=== PATIENT | female | born 1990 | race Caucasian/White ===

== ENCOUNTER 2017-02-27 21:17 | Inpatient (IN) | payer MEDICAID ==
[~2017-02-27] VITALS: Ht 175.3 cm; Wt 102.1 kg
[2017-02-27 21:54] LABS: BASOPHILS % (AUTO) 0.2 % (0.0-2.0); EOSINOPHILS % (AUTO) 0.3 % (1.0-6.0); HEMATOCRIT 43.1 % (36-46); HEMOGLOBIN 14.5 g/dL (12.0-16.0); LYMPHOCYTES # (AUTO) 2.2 K/uL (1.0-4.8); LYMPHOCYTES % (AUTO) 14.3 % (22.0-44.0); MEAN CORPUSCULAR HEMOGLOBIN 28.1 pg (26.0-34.0); MEAN CORPUSCULAR HGB CONC 33.6 G/dL (31.0-37.0); MEAN CORPUSCULAR VOLUME 84 fL (80-100); MONOCYTES # (AUTO) 0.6 K/uL (0.1-1.0); MONOCYTES % (AUTO) 4.2 % (2.0-9.0); NEUTROPHILS # (AUTO) 12.4 K/uL (1.8-7.7); PLATELET COUNT (AUTO) 283 K/uL (150-450); RED BLOOD CELL COUNT(AUTO) 5.16 MIL/uL (4.00-5.20); RED CELL DISTRIBUTION WIDTH 13.9 % (11.5-14.5); WHITE BLOOD COUNT (AUTO) 15.4 K/uL (4.5-11.0)
[2017-02-27 22:00] LABS: ANION GAP 18 mmol/L (8-16); CALCIUM, TOTAL 9.6 mg/dL (8.8-10.5); CARBON DIOXIDE 22 mmol/L (22-29); CHLORIDE 100 mmol/L (98-107); GLOMERULAR FILTR. RATE CALC > 60 mL/min (>60); POTASSIUM 4.7 mmol/L (3.5-5.1); SODIUM SERUM 140 mmol/L (136-145); UREA NITROGEN, BLOOD 12 mg/dL (7-18)
[2017-02-27 22:05] LABS: ALANINE AMINOTRANSFERASE 19 U/L (12-78); ALBUMIN 4.5 g/dL (3.4-5.0); ASPARTATE AMINOTRANSFERASE 16 U/L (15-37); BILIRUBIN,TOTAL 1.2 mg/dL (0.1-1.0); TOTAL PROTEIN, SERUM 8.6 g/dL (6.4-8.2)
[2017-02-27] MEDS ORDERED: LORazepam 2 MG TABLET PO PRN (22:45)
[2017-02-27] MEDS ORDERED: ZOLPIDEM TARTRATE 10 MG TABLET PO PRN (22:45)
[2017-02-27] MEDS ORDERED: DiphenhydrAMINE HCL 50 MG/ML VIAL IM ONE (23:00)
[2017-02-27] MEDS ORDERED: LORazepam 2 MG/ML VIAL IM ONE (23:00)
[2017-02-27] MEDS ORDERED: HALOPERIDOL LACTATE 5 MG/ML VIAL IM ONE (23:00)
[2017-02-27 23:05] LABS: ADD UA MICROSCOPIC YES; APPEARANCE,URINE CLOUDY (CLEAR); GLUCOSE, URINE (UA) NEGATIVE (NEGATIVE); KETONES,URINE >=80 mg/dL (NEGATIVE); LEUKOCYTE ESTERASE ,URINE NEGATIVE (NEGATIVE); OCCULT BLOOD,URINE NEGATIVE (NEGATIVE); PH,URINE 5.5 (5.0-8.0); PROTEIN,URINE NEGATIVE (NEGATIVE)
[2017-02-28 00:53] LABS: CHOL/HDL RATIO 5.1 (3.9-5.7); THYROID STIMULATING HORMONE 1.63 uIU/mL (0.36-3.74)
[2017-02-28] MEDS ORDERED: INFLUENZA VIRUS VACCINE QVS 2017-18 (3YR+)/PF 60 MCG/0.5 ML SYRINGE IM ONE (02:30)
[2017-02-28 04:41] VITALS: BP 136/88
[2017-02-28 08:02] VITALS: BP 128/69
[2017-03-01] MEDS: ARIPiprazole 10 MG TABLET PO SCH (09:33)
[2017-03-02 08:38] VITALS: BP 118/84
[2017-03-02] MEDS: ARIPiprazole 10 MG TABLET PO SCH (08:47)
[2017-03-02 16:12] VITALS: BP 142/83
[2017-03-03] MEDS: ARIPiprazole 10 MG TABLET PO SCH (09:08)
[2017-03-03 16:12] VITALS: BP 120/92
[2017-03-04 02:19] VITALS: BP 129/76
[2017-03-04 08:00] VITALS: BP 118/71
[2017-03-04] MEDS: ARIPiprazole 10 MG TABLET PO SCH (08:52)
[2017-03-05 09:00] VITALS: BP 118/74
[2017-03-05] MEDS: ARIPiprazole 10 MG TABLET PO SCH (09:00)
[2017-03-05 16:27] VITALS: BP 123/92
[2017-03-06] MEDS ORDERED: LORazepam 2 MG/ML VIAL ONE ×2 (02:59→18:53)
[2017-03-06] MEDS ORDERED: DiphenhydrAMINE HCL 50 MG/ML VIAL ONE ×2 (03:00→18:53)
[2017-03-06] MEDS ORDERED: HALOPERIDOL LACTATE 5 MG/ML VIAL ONE ×2 (03:00→18:53)
[2017-03-06] MEDS ORDERED: DiphenhydrAMINE HCL 50 MG/ML VIAL IM ONE ×2 (03:30→19:00)
[2017-03-06] MEDS ORDERED: LORazepam 2 MG/ML VIAL IM ONE ×2 (03:30→19:00)
[2017-03-06] MEDS ORDERED: HALOPERIDOL LACTATE 5 MG/ML VIAL IM ONE ×2 (03:30→19:00)
[2017-03-06 06:59] VITALS: BP 131/94
[2017-03-06 08:16] VITALS: BP 128/88
[2017-03-06] MEDS: ARIPiprazole 10 MG TABLET PO SCH (08:53)
[2017-03-06 16:36] VITALS: BP 130/85
[2017-03-07] MEDS: ARIPiprazole 10 MG TABLET PO SCH (08:56)
[2017-03-07 19:46] VITALS: BP 120/69
[2017-03-07] MEDS: ACETAMINOPHEN 325 MG TABLET PO PRN (19:46)
[2017-03-08] MEDS: ARIPiprazole 10 MG TABLET PO SCH (08:20)
[2017-03-08 08:21] VITALS: BP 115/60
[2017-03-08 16:15] VITALS: BP 120/88
[2017-03-08] MEDS ORDERED: LORazepam 2 MG/ML VIAL ONE (21:32)
[2017-03-08] MEDS ORDERED: HALOPERIDOL LACTATE 5 MG/ML VIAL ONE (21:33)
[2017-03-08] MEDS ORDERED: DiphenhydrAMINE HCL 50 MG/ML VIAL ONE (21:33)
[2017-03-08 21:42] VITALS: BP 161/116
[2017-03-08] MEDS ORDERED: DiphenhydrAMINE HCL 50 MG/ML VIAL IM ONE (21:45)
[2017-03-08] MEDS ORDERED: HALOPERIDOL LACTATE 5 MG/ML VIAL IM ONE (21:45)
[2017-03-08] MEDS ORDERED: LORazepam 2 MG/ML VIAL IM ONE (21:45)
[2017-03-08 22:13] VITALS: BP 120/81
[2017-03-09 00:53] VITALS: BP 109/67
[2017-03-09] MEDS: ARIPiprazole 10 MG TABLET PO SCH ×2 (08:31→09:00)
[2017-03-09 16:10] VITALS: BP 128/89
[2017-03-10] MEDS: ARIPiprazole 10 MG TABLET PO SCH (08:09)
[2017-03-10 08:31] VITALS: BP 118/73
[2017-03-10 08:42] LABS: BASOPHILS % (AUTO) 0.4 % (0.0-2.0); EOSINOPHILS % (AUTO) 2.2 % (1.0-6.0); HEMATOCRIT 37.5 % (36-46); HEMOGLOBIN 12.7 g/dL (12.0-16.0); LYMPHOCYTES # (AUTO) 2.3 K/uL (1.0-4.8); LYMPHOCYTES % (AUTO) 34.2 % (22.0-44.0); MEAN CORPUSCULAR HEMOGLOBIN 28.5 pg (26.0-34.0); MEAN CORPUSCULAR HGB CONC 33.8 G/dL (31.0-37.0); MEAN CORPUSCULAR VOLUME 84 fL (80-100); MONOCYTES # (AUTO) 0.5 K/uL (0.1-1.0); MONOCYTES % (AUTO) 7.2 % (2.0-9.0); NEUTROPHILS # (AUTO) 3.8 K/uL (1.8-7.7); PLATELET COUNT (AUTO) 230 K/uL (150-450); RED BLOOD CELL COUNT(AUTO) 4.45 MIL/uL (4.00-5.20); RED CELL DISTRIBUTION WIDTH 14.1 % (11.5-14.5); WHITE BLOOD COUNT (AUTO) 6.8 K/uL (4.5-11.0)
[2017-03-10 16:37] VITALS: BP 113/74
[2017-03-10] MEDS ORDERED: DiphenhydrAMINE HCL 50 MG/ML VIAL ONE (20:48)
[2017-03-10] MEDS ORDERED: HALOPERIDOL LACTATE 5 MG/ML VIAL ONE (20:48)
[2017-03-10] MEDS ORDERED: LORazepam 2 MG/ML VIAL ONE (20:48)
[2017-03-10] MEDS ORDERED: LORazepam 2 MG/ML VIAL IM ONE (21:00)
[2017-03-10] MEDS ORDERED: HALOPERIDOL LACTATE 5 MG/ML VIAL IM ONE (21:00)
[2017-03-10] MEDS ORDERED: DiphenhydrAMINE HCL 50 MG/ML VIAL IM ONE (21:00)
[2017-03-11] MEDS: ARIPiprazole 10 MG TABLET PO SCH ×2 (08:22→09:00)
[2017-03-11] MEDS: HALOPERIDOL 5 MG TABLET PO PRN (08:22)
[2017-03-11] MEDS: LORazepam 2 MG TABLET PO PRN (08:22)
[2017-03-11] MEDS: OLANZapine 10 MG TABLET PO SCH (21:00)
[2017-03-11] MEDS: ACETAMINOPHEN 325 MG TABLET PO PRN (23:41)
[2017-03-12] MEDS: OLANZapine 10 MG TABLET PO SCH ×2 (09:00→20:42)
[2017-03-12] MEDS: DOCUSATE SODIUM 100 MG CAPSULE PO PRN (15:01)
[2017-03-12 16:09] VITALS: BP 109/63
[2017-03-12] MEDS: ZOLPIDEM TARTRATE 10 MG TABLET PO PRN (21:01)
[2017-03-13 07:21] VITALS: BP 110/79
[2017-03-13] MEDS: OLANZapine 10 MG TABLET PO SCH ×2 (08:07→20:23)
[2017-03-13 09:01] VITALS: BP 110/79
[2017-03-13] MEDS: ZOLPIDEM TARTRATE 10 MG TABLET PO PRN (20:23)
[2017-03-14 06:31] VITALS: BP 112/63
[2017-03-14] MEDS: OLANZapine 10 MG TABLET PO SCH ×2 (08:35→20:03)
[2017-03-14 09:41] VITALS: BP 112/65
[2017-03-14 16:46] VITALS: BP 105/64
[2017-03-14] MEDS: ZOLPIDEM TARTRATE 10 MG TABLET PO PRN (21:03)
[2017-03-15 06:53] VITALS: BP 110/69
[2017-03-15] MEDS: OLANZapine 10 MG TABLET PO SCH ×2 (09:27→20:41)
[2017-03-15 16:36] VITALS: BP 147/74
[2017-03-15] MEDS: LORazepam 2 MG TABLET PO PRN (17:11)
[2017-03-15] MEDS: HALOPERIDOL 5 MG TABLET PO PRN (17:11)
[2017-03-15] MEDS: ZOLPIDEM TARTRATE 10 MG TABLET PO PRN (21:12)
[2017-03-16 06:23] VITALS: BP 112/73
[2017-03-16] MEDS: OLANZapine 10 MG TABLET PO SCH ×2 (09:16→21:30)
[2017-03-16 12:40] VITALS: BP 114/67
[2017-03-16 16:37] VITALS: BP 114/78
[2017-03-16] MEDS: LORazepam 2 MG TABLET PO PRN ×2 (17:06→23:00)
[2017-03-16] MEDS: HALOPERIDOL 5 MG TABLET PO PRN (17:06)
[2017-03-16] MEDS: ZOLPIDEM TARTRATE 10 MG TABLET PO PRN (21:30)
[2017-03-17 00:03] VITALS: BP 122/69
[2017-03-17] MEDS: ACETAMINOPHEN 325 MG TABLET PO PRN (00:05)
[2017-03-17] MEDS: HALOPERIDOL 5 MG TABLET PO PRN (00:05)
[2017-03-17 08:26] VITALS: BP 114/76
[2017-03-17] MEDS: OLANZapine 10 MG TABLET PO SCH ×2 (09:16→20:26)
[2017-03-17 16:34] VITALS: BP 117/76
[2017-03-17] MEDS: ZOLPIDEM TARTRATE 10 MG TABLET PO PRN (21:05)
[2017-03-17] MEDS: LORazepam 2 MG TABLET PO PRN (22:05)
[2017-03-18 06:09] VITALS: BP 115/75
[2017-03-18] MEDS: OLANZapine 10 MG TABLET PO SCH ×2 (08:42→20:09)
[2017-03-18 08:55] VITALS: BP 121/66
[2017-03-18 16:26] VITALS: BP 138/87
[2017-03-18] MEDS: ZOLPIDEM TARTRATE 10 MG TABLET PO PRN (20:09)
[2017-03-18] MEDS: LORazepam 2 MG TABLET PO PRN (22:30)
[2017-03-18] MEDS: HALOPERIDOL 5 MG TABLET PO PRN (22:30)
[2017-03-19] MEDS: OLANZapine 10 MG TABLET PO SCH ×2 (08:29→20:11)
[2017-03-19 16:12] VITALS: BP 131/75
[2017-03-19] MEDS: ZOLPIDEM TARTRATE 10 MG TABLET PO PRN (20:12)
[2017-03-19] MEDS: LORazepam 2 MG TABLET PO PRN (20:12)
[2017-03-20 07:19] VITALS: BP 128/69
[2017-03-20] MEDS: OLANZapine 10 MG TABLET PO SCH ×2 (08:29→20:40)
[2017-03-20] MEDS: LORazepam 2 MG TABLET PO PRN ×2 (08:33→20:40)
[2017-03-20 16:20] VITALS: BP 110/73
[2017-03-20 17:04] VITALS: BP 115/68
[2017-03-20] MEDS: ACETAMINOPHEN 325 MG TABLET PO PRN (17:04)
[2017-03-20] MEDS: ZOLPIDEM TARTRATE 10 MG TABLET PO PRN (21:01)
[2017-03-21 00:53] VITALS: BP 114/60
[2017-03-21] MEDS: HALOPERIDOL 5 MG TABLET PO PRN ×2 (00:55→17:03)
[2017-03-21] MEDS: LORazepam 2 MG TABLET PO PRN ×3 (00:55→17:03)
[2017-03-21] MEDS: OLANZapine 10 MG TABLET PO SCH ×2 (08:25→20:48)
[2017-03-21 16:11] VITALS: BP 104/69
[2017-03-21] MEDS: ZOLPIDEM TARTRATE 10 MG TABLET PO PRN (21:12)
[2017-03-22] MEDS: OLANZapine 10 MG TABLET PO SCH ×2 (08:20→20:12)
[2017-03-22] MEDS: LORazepam 2 MG TABLET PO PRN ×2 (08:21→20:12)
[2017-03-22 16:15] VITALS: BP 112/71
[2017-03-22] MEDS: ZOLPIDEM TARTRATE 10 MG TABLET PO PRN (20:12)
[2017-03-23 02:13] VITALS: BP 117/67
[2017-03-23 08:30] VITALS: BP 106/65
[2017-03-23] MEDS: OLANZapine 10 MG TABLET PO SCH ×2 (09:54→20:30)
[2017-03-23 16:14] VITALS: BP 130/66
[2017-03-23] MEDS: LORazepam 2 MG TABLET PO PRN (18:41)
[2017-03-23] MEDS: ACETAMINOPHEN 325 MG TABLET PO PRN (21:21)
[2017-03-23 21:22] VITALS: BP 127/67
[2017-03-23] MEDS: ZOLPIDEM TARTRATE 10 MG TABLET PO PRN (21:53)
[2017-03-24] MEDS: OLANZapine 10 MG TABLET PO SCH ×2 (08:24→20:46)
[2017-03-24] MEDS: LORazepam 2 MG TABLET PO PRN (16:12)
[2017-03-24 18:04] VITALS: BP 124/81
[2017-03-24] MEDS: ZOLPIDEM TARTRATE 10 MG TABLET PO PRN (21:16)
[2017-03-25 07:35] VITALS: BP_SYST 1; BP_SYST 120; BP_DIAS 78
[2017-03-25] MEDS: OLANZapine 10 MG TABLET PO SCH ×2 (08:27→20:21)
[2017-03-25 08:55] VITALS: BP 122/89
[2017-03-25] MEDS: LORazepam 2 MG TABLET PO PRN ×2 (09:03→20:21)
[2017-03-25 16:53] VITALS: BP 112/80
[2017-03-25] MEDS: ZOLPIDEM TARTRATE 10 MG TABLET PO PRN (20:21)
[2017-03-26] MEDS: OLANZapine 10 MG TABLET PO SCH ×2 (08:30→20:59)
[2017-03-26 08:55] VITALS: BP 100/56
[2017-03-26] MEDS: LORazepam 2 MG TABLET PO PRN ×2 (09:06→16:33)
[2017-03-26 16:00] VITALS: BP 131/84
[2017-03-26] MEDS: ZOLPIDEM TARTRATE 10 MG TABLET PO PRN (20:58)
[2017-03-27 00:01] VITALS: BP 127/79
[2017-03-27] MEDS: ACETAMINOPHEN 325 MG TABLET PO PRN (00:03)
[2017-03-27] MEDS: OLANZapine 10 MG TABLET PO SCH ×2 (09:01→20:33)
[2017-03-27 09:02] VITALS: BP 122/77
[2017-03-27 16:00] VITALS: BP 102/66
[2017-03-27] MEDS: LORazepam 2 MG TABLET PO PRN (17:30)
[2017-03-28 06:50] VITALS: BP 116/74
[2017-03-28] MEDS: OLANZapine 10 MG TABLET PO SCH ×2 (09:28→20:21)
[2017-03-28 10:07] VITALS: BP 101/66
[2017-03-28] MEDS: DOCUSATE SODIUM 100 MG CAPSULE PO PRN (15:13)
[2017-03-28 16:38] VITALS: BP 119/78
[2017-03-28] MEDS: ZOLPIDEM TARTRATE 10 MG TABLET PO PRN (20:23)
[2017-03-29 06:07] VITALS: BP 121/63
[2017-03-29] MEDS ORDERED: OLAN10TA3 PO (08:35)
[2017-03-29] MEDS: OLANZapine 10 MG TABLET PO SCH (08:47)
[2017-03-29 08:57] VITALS: BP 120/70
== END 2017-03-29 09:30 | disposition home or self-care (01) | DRG 750 ==
LOC: EEVIPCON 21:20 → EMS 21:20 → B3A 23:10 → 3EI 03-09 21:03 → B3A 03-09 21:35
PROVIDERS: ADMIT Psychiatry & Neurology Psychiatry; ATTEND Psychiatry & Neurology Child & Adolescent Psychiatry
DX: F20.0 Paranoid schizophrenia (principal); R17 Unspecified jaundice; E78.5 Hyperlipidemia, unspecified; D72.829 Elevated white blood cell count, unspecified; F31.9 Bipolar disorder, unspecified; Z86.59 Personal history of other mental and behavioral disorders; Z28.21 Immunization not carried out because of patient refusal
CPT/HCPCS: 84443; 87081; 90471; 96372; 99291; G0480; J1200; J1630; J2060